=== PATIENT | female | born 1955 | race Caucasian/White ===

== ENCOUNTER → 2018-02-09 | Outpatient (CLI) | payer OTHER | LOC: LAB.R 14:00 | PROVIDERS: ATTEND Obstetrics & Gynecology | DX: N76.0 Acute vaginitis (principal) | CPT/HCPCS: 87480; 87510; 87660 ==

== ENCOUNTER 2021-02-17 12:50 | Outpatient (CLI) | payer OTHER ==
--- NOTE | 2021-02-22 12:23 | Mammography Report ---
UNILATERAL RIGHT DIGITAL SCREENING MAMMOGRAM 3D/2D - LEFT BREAST POST MASTECTOMY WITH RECONSTRUCTION: 02/17/2021 CLINICAL: Routine screening. Personal history of left breast cancer. Routine screening. Personal hist ory of left breast cancer. Additional films were requested but not obtained. The tissue of right breast is heterogeneously dens e. This may lower the sensitivity of mammography. Reporting delay due to awaiting outside images for comparison. There is a focal asymmetry in the right breast at 8 o'clock middle depth. No other significant masses or calcifications are seen in the breast. IMPRESSION: INCOMPLETE: NEED PRIOR STUDIES FOR COMPARISON The focal asymmetry in the right breast is indeterminate. Additional views with possible ultrasound are recommended. If prior studies become available, an addendum will be made to this report. This exam was interpreted at Station ID: [id number]. NOTE: For mammograms, a report in lay terms will be sent to the patient. Approximately 15% of breast malignancies will not be visualized mammographically. In the management of a palpable breast mass, a negative mammogram must not discourage biopsy of a clinically suspicious lesion. Electronically Signed By: Fabien quinteros/prakash:02/19/2021 12:44:28 ACR BI-RADS Category 0 Need prior studies for comparison 3340F PARENCHYMAL PATTERN: (D) - The breast(s) demonstrate(s) heterogeneously dense fibroglandular tato brown. BI-RADS CATEGORY: (0) - 0 Mammo and [place] [id number] Immediate follow-up LATERALITY: (R)
== END 2021-02-17 12:51 | disposition home or self-care (01) ==
LOC: DI.S 12:50
DX: Z12.31 Encounter for screening mammogram for malignant neoplasm of breast (principal); Z08 Encounter for follow-up examination after completed treatment for malignant neoplasm; Z85.3 Personal history of malignant neoplasm of breast; N64.89 Other specified disorders of breast

== ENCOUNTER 2021-03-16 12:42 | Outpatient (CLI) | payer OTHER ==
--- NOTE | 2021-03-17 12:15 | Mammography Report ---
UNILATERAL RIGHT DIGITAL DIAGNOSTIC MAMMOGRAM 3D/2D: 03/16/2021 CLINICAL: Patient returns today to evaluate a focal asymmetry in the right breast. Comparison is made to exam dated: 02/17/2021 mammogram - [facility]. The tissue of right breast is heterogeneously dense. This may lower the sensitivity of mammography. There is an oval equal density focal asymmetry with an indistinct and circumscribed margin in the rig ht breast at 7 o'clock anterior depth. This is less prominent on additional views. No other significant masses or calcifications are seen in the breast. IMPRESSION: INCOMPLETE: NEEDS ADDITIONAL IMAGING EVALUATION The oval equal density focal asymmetry in the right breast is indeterminate. An ultrasound is recomm ended. Ultrasound will be performed immediately following the current exam. This exam was interpreted at Station ID: [id number]. NOTE: For mammograms, a report in lay terms will be sent to the patient. Approximately 15% of breast malignancies will not be visualized mammographically. In the management of a palpable breast mass, a negative mammogram must not discourage biopsy of a clinically suspicious lesion. Electronically Signed By: Abhishek Hubbard M.D. ddp/:03/16/2021 13:59:11 ACR BI-RADS Category 0: Incomplete 3340F PARENCHYMAL PATTERN: (D) - The breast(s) demonstrate(s) heterogeneously dense fibroglandular tato brown. BI-RADS CATEGORY: (0) - 0 Ultrasound [id number] Immediate follow-up LATERALITY: (B)
--- NOTE | 2021-03-17 12:15 | Ultrasound Report ---
LIMITED ULTRASOUND OF RIGHT BREAST AND AXILLA: 03/16/2021 CLINICAL: Patient returns today to evaluate a focal asymmetry in the right breast. Comparison is made to exams dated: 03/16/2021 mammogram and 02/17/2021 mammogram - [facility]. Color flow and real-time ultrasound of the right breast 7-10 o'clock, and axilla regions were perform ed on the areas of interest. Hollis scale images of the real-time examination were reviewed. There is a 0.7 cm x 0.3 cm x 0.7 cm oval mass with an indistinct and circumscribed margin in the righ t breast at 9 o'clock middle depth. This oval mass is hypoechoic with posterior acoustic shadowing. This correlates with mammography findings. Color flow imaging demonstrates that there is no vascula rity present. No suspicious enlarged lymph nodes were seen sonographically in the right axilla. IMPRESSION: SUSPICIOUS OF MALIGNANCY The 0.7 cm x 0.3 cm x 0.7 cm oval mass in the right breast is suspicious of malignancy. An ultrasoun d guided biopsy is recommended. The findings were discussed with the patient at the conclusion of the study by Dr. Jackson. This exam was interpreted at Station ID: [id number]. Electronically Signed By: Abhishek Hubbard M.D. ddparth/:03/16/2021 16:29:41 Ultrasound BI-RADS: 4 Suspicious for malignancy BI-RADS CATEGORY: (4) - 4 None [id number] Immediate follow-up LATERALITY: ()
== END 2021-03-16 12:43 | disposition home or self-care (01) ==
LOC: DI 12:42
PROVIDERS: ATTEND Family Medicine
DX: R92.2 Inconclusive mammogram (principal); N63.13 Unspecified lump in the right breast, lower outer quadrant

== ENCOUNTER 2021-03-24 11:49 | Outpatient (CLI) | payer OTHER ==
[2021-03-24] MEDS ORDERED: LIDOCAINE MPF 1%-EPI 1:200000 30 ML VIAL ONE (12:19)
[2021-03-24] MEDS ORDERED: BUFFERED LIDOCAINE 10 ML SYRINGE ONE (12:19)
[2021-03-24] MEDS ORDERED: BUFFERED LIDOCAINE 10 ML SYRINGE IU ONE (14:24)
[2021-03-24] MEDS ORDERED: LIDOCAINE MPF 1%-EPI 1:200000 30 ML VIAL SUBQ ONE (14:40)
--- NOTE | 2021-03-25 05:50 | Mammography Report ---
UNILATERAL RIGHT DIGITAL DIAGNOSTIC MAMMOGRAM 3D/2D: 03/24/2021 CLINICAL: Post right breast ultrasound biopsy clip placement imaging. Comparison is made to exams dated: 03/16/2021 mammogram and 02/17/2021 mammogram - [facility]. The tissue of right breast is heterogeneously dense. This may lower the sensitivity of mamm ography. There is a marker clip in the appropriate position in the right breast at 8 o'clock anterior depth. This marker clip placement is at the biopsy site. IMPRESSION: POST PROCEDURE MAMMOGRAM FOR MARKER PLACEMENT There was a successful marker clip placement in the right breast anterior depth. This exam was interpreted at Station ID: [id number]. NOTE: For mammograms, a report in lay terms will be sent to the patient. Approximately 15% of breast malignancies will not be visualized mammographically. In the management of a palpable breast mass, a negative mammogram must not discourage biopsy of a clinically suspicious lesion. Electronically Signed By: Justin bey/:03/24/2021 16:04:38 ACR BI-RADS Category Post-procedure mammogram for marker placement PARENCHYMAL PATTERN: (D) - The breast(s) demonstrate(s) heterogeneously dense fibroglandular tato brown. BI-RADS CATEGORY: () - Biopsy follow-up [id number] Immediate follow-up LATERALITY: (B)
--- NOTE | 2021-03-30 08:07 | Ultrasound Report ---
ULTRASOUND GUIDED BIOPSY RIGHT BREAST USING VACUUM DEVICE WITH MARKING DEVICE INSERTED: 03/24/2021 CLINICAL: Right breast mass. PATIENT CONSENT: Risks (minor bleeding, infection, vasovagal reaction and repeat procedure), benefits and alternatives were explained to the patient and written informed consent was obtained. Correlation is made to exams dated: 03/16/2021 ultrasound, 03/16/2021 mammogram, and 02/17/2021 mammogram - [facility]. An ultrasound guided biopsy using real-time ultrasound was performed for the mass located in the righ t breast at 9 o'clock The skin was prepped in the usual manner. Local anesthetic was administered to the access site. A small incision was made in the breast. The abnormality was approached from the lateral aspect. A biopsy needle was placed adjacent to the abnormality under ultrasound guidance. O nce the needle was documented to be in the correct location, six specimens were obtained using the [employer] mmotome biopsy system. The patient received additional local anesthetic during the procedure. A cli p was inserted into the biopsy cavity. The specimens were sent to the laboratory for pathological an alysis. IMPRESSION: ULTRASOUND GUIDED BIOPSY BENIGN Ultrasound guided biopsy of the mass in the right breast at 9 o'clock posterior depth was successful. Pathology indicates benign stromal sclerosis and dystrophic microcalcifications. Pathology results are concordant with imaging findings. Return to annual mammogram screening schedule is recommended. This exam was interpreted at Station ID: [id number]. Justin bey,aty/:03/29/2021 18:09:44 BI-RADS CATEGORY: () - Mammogram [id number] return to screening LATERALITY: (B)
== END 2021-03-24 11:50 | disposition home or self-care (01) ==
LOC: DI 11:49
PROVIDERS: ATTEND Family Medicine
DX: N60.31 Fibrosclerosis of right breast (principal); R92.0 Mammographic microcalcification found on diagnostic imaging of breast
CPT/HCPCS: 19083

== ENCOUNTER 2021-07-07 14:31 | Outpatient (CLI) | payer OTHER ==
[2021-07-07] MEDS ORDERED: GADOBUTROL 7.5 MMOL/7.5 ML VIAL ONE (14:44)
[2021-07-07] MEDS ORDERED: GADOBUTROL 7.5 MMOL/7.5 ML VIAL IVP ONE (17:03)
--- NOTE | 2021-07-07 19:27 | MRI Report ---
PROCEDURE: Lumbar Spine W/WO INDICATIONS: MONOPLEGIA OF LOWER LIMB/HIST OF LUMBAR DISKECTOM CONTRAST: IV CONTRAST: Gadavist ml: 6.5 TECHNIQUE: Noncontrast sagittal T1 spin echo and T2 fast spin echo, sagittal STIR, axial T1 and T2 fast spin ech o through the lumbar spine. In cases with scoliosis, additional coronal T2 fast spin echo may be per formed. After the administration of contrast, sagittal and axial T1 spin echo with fat saturation th rough the lumbar spine. COMPARISON: None. FINDINGS: Image quality: Excellent. Alignment and curvature: There is transitional anatomy with what appears to be lumbarization of the first sacral vertebral body. For purposes of this exam, vertebral bodies are labeled one through 5. T here is trace retrolisthesis of L3 on L4, L4 on L5. Marrow: Marrow is of normal overall signal. Mild to moderate reactive endplate changes are present at L2-3, L3-4, L4-5. There is a focus of increased T2 and decreased T1 signal with enhancement at T11 . No acute vertebral body compression fractures. No suspicious marrow enhancement. Spinal cord: Conus medullaris terminates at the L1-2 level. Visualized spinal cord demonstrates nor mal signal, without suspicious enhancement. Paraspinous soft tissues: No paravertebral masses or abnormal enhancement. Discs: Moderate to severe desiccation is present throughout the lumbar spine most notable at L4-5. L1-L2: No disc bulge, spinal stenosis or foraminal narrowing. L2-L3: Mild disc bulge with prominent posterior central protrusion causing indentation of the ante rior thecal sac. No foraminal narrowing. L3-L4: Mild disc bulge with moderate to severe spinal stenosis. Mild right and minimal to mild left foraminal narrowing with facet and ligamentum flavum hypertrophy. L4-L5: Mild disc bulge with severe spinal stenosis and canal compression. There is asymmetric right posterior paracentral bulge causing significant compromise of the right lateral recess. Mild to mode rate bilateral foraminal narrowing with facet and ligamentum flavum hypertrophy. L5-S1: Mild disc bulge with moderate spinal stenosis. Moderate left and mild right foraminal narrow ing with facet and ligamentum flavum hypertrophy. IMPRESSION: 1. Multilevel foraminal narrowing most notable at L5-S1 secondary to facet arthropathy. 2. Multilevel spinal stenosis most severe at L3-4 and L4-5 secondary to disc bulge with contributing effect of facet/ligamentum flavum arthropathy. 3. Increased T2 focus at T11 with enhancement suggestive of atypical hemangioma. However, if there is a known history of malignancy, further evaluation with bone scan is recommended to exclude metastati c focus. Reviewed by: Ashley Jackson MD on 07/07/2021 5:39 PM PDT Approved by: Ashley Jackson MD on 07/07/2021 5:39 PM PDT Station ID: [id number]
== END 2021-07-07 14:32 | disposition home or self-care (01) ==
LOC: DI 14:31
PROVIDERS: ATTEND Internal Medicine
DX: M47.816 Spondylosis without myelopathy or radiculopathy, lumbar region (principal); M51.36 Other intervertebral disc degeneration, lumbar region; M48.061 Spinal stenosis, lumbar region without neurogenic claudication; M47.817 Spondylosis without myelopathy or radiculopathy, lumbosacral region; M51.37 Other intervertebral disc degeneration, lumbosacral region; M48.07 Spinal stenosis, lumbosacral region; R93.7 Abnormal findings on diagnostic imaging of other parts of musculoskeletal system
CPT/HCPCS: 72158; A9585

== ENCOUNTER 2021-09-28 22:07 | Outpatient (CLI) | payer OTHER | END 2021-09-28 22:08 | disposition EMS.NT | LOC: EMS 22:07 | DX: F41.9 Anxiety disorder, unspecified (principal) ==